=== PATIENT | female | born 1995 | race Caucasian/White ===

== ENCOUNTER 2024-02-13 23:33 | Inpatient (IN) | payer OTHER, SELFPAY ==
--- NOTE | 2024-02-13 23:55 | LDADM ---
This patient, Ronit Rahman, was admitted to Labor/Delivery/Recovery 104 on 02/13/24 at 23:33. Plans for labor, pain management and were discussed with patient. Patient/family oriented to hospital policies and general routines including ID bracelet, bed and alarms, visiting hours, pain management, procedures, bathroom and other care routines, personal items, smoking policy, room service/diet and guest tray routines, infant security routines, and visiting hours. Patient/Family are encouraged to report perceived risks to care and to ask questions if they do not understand what they are told or what they should do. See OBIX for further documentation.
[2024-02-13 23:57] VITALS: BMI 28.2
[2024-02-14] VITALS (154 sets, daily range): BP systolic 50–139; BP diastolic 39–115; PULSE 49–191; RESP 16–18; TEMP 36.1–37.1; O2SAT 93–100
[2024-02-14 00:21] LABS: Basophils Percent Auto 0.3 % (0.2-1.2); Eosinophils Absolute Auto 0.2 K/mm3 (0-0.3); Eosinophils Percent Auto 1.9 % (0-4.4); Hematocrit 31.6 % (37.0-47.0); Hemoglobin 10.3 g/dL (12.0-15.0); Lymphocytes Absolute Auto 2.06 K/mm3 (0.9-3.2); Mean Corpuscular HGB Conc 32.6 g/dl (32-36); Mean Corpuscular Hemoglobin 30.5 pg (26-34); Mean Corpuscular Volume 93.5 fl (80-100); Mean Platelet Volume 10.5 fl (7.4-10.4); Monocytes Absolute Auto 0.8 K/mm3 (0.1-0.6); Monocytes Percent Auto 7.6 % (2.6-8.5); Neutrophils Absolute Auto 6.7 K/mm3 (1.3-6.7); Neutrophils Percent Auto 68.2 % (45.5-73.1); Platelet Count Result 215 k/mm3 (150-375); Red Blood Count 3.38 M/mm3 (4.2-5.4); Red Cell Distribution Width 14.6 % (11.5-14.5); White Blood Count 9.8 K/mm3 (4.5-10.0)
[2024-02-14] MEDS: ACETAMINOPHEN 500 MG TABLET 1000 MG PO (02:26)
[2024-02-14] MEDS: FAMOTIDINE 20 MG/2 ML VIAL IV PUSH (02:27)
[2024-02-14] MEDS: miSOPROStol 25 MCG TABLET 50 MCG BY MOUTH ×2 (03:17→04:16)
[2024-02-14] MEDS: ONDANSETRON INJ 4 MG/2 ML VIAL IV PUSH (04:14)
[2024-02-14] MEDS: fentaNYL CITRATE INJ (*CRX) 100 MCG/2 ML VIAL 50 MCG IV PUSH (06:46)
[2024-02-14] MEDS: LACTATED RINGERS 1,000 ML 125 ML IV CONT ×2 (07:20→08:21)
--- NOTE | 2024-02-14 07:51 | WPDOBADMIT ---
Obstetrics - Admit Note Admission Note: record reviewed. No pertinent additions to the history and/or any subsequent changes in the physical findings that are not consistent with the expected course of the were found. Additions to the history and/or subsequent changes in the physical findings follow. IOL, cholestasis, SVE 1.5/60/-2 AROM, moderate amount of clear, odorless fluid, anticipate vaginal delivery
[2024-02-14] MEDS: OXYTOCIN 30 UNITS/NS 500 ML 30 UNITS/500 ML BAG IV CONT (09:34)
--- NOTE | 2024-02-14 12:02 | PM.OBPRVD ---
OB - Vaginal Delivery Note Procedure Delivery date: 02/14/24 Events: Other (XXY-fetus, cholestasis) Induction method: AROM, Per Misoprostol Protocol and Per Pitocin Protocol Delivery monitor: External FHT and Internal Uterine Route of delivery: Episiotomy description: None Laceration Description: Other (right labial) Delivery repair: vicryl Specimen: No Quantitative Blood Loss (ml): 60 Anesthesia type: Epidural Disposition: Floor Complications: No immediate complications [place] Baby Date of : 02/14/24 Time of : 11:50 Weeks of gestation at delivery: 37 Infant gender: Male presentation: vertex position: Left Occiput Anterior Placenta delivery description: Spontaneous Cord Vessel Description: 3 Vessels, Nuchal Cord (x2), Reduced and Delayed Cord Clamping score one minute: 8 score five minutes: 9 Narrative: mother and baby skin to skin in stable condition
[2024-02-14] MEDS: OXYTOCIN 30 UNITS/NS 500 ML 30 UNITS/500 ML BAG 125 UNITS IV CONT (12:35)
[2024-02-14] MEDS: BENZOCAINE 20% AER SPR (*SP) 56 GM CAN 1 SPRAY TOPICAL ×2 (14:08→16:10)
[2024-02-14] MEDS: ACETAMINOPHEN 325 MG TABLET 650 MG PO (14:08)
--- NOTE | 2024-02-14 16:02 | OBPPTRN ---
1445-Patient transferred to post room #291 via wheelchair. Support person present. Oriented to unit, room, information board, rooming in, admission packet and security measures. Patient verbalizes understanding.
[2024-02-14] MEDS: IBUPROFEN 600 MG TABLET PO (16:09)
[2024-02-14] MEDS: WITCH HAZEL 40 PADS 1 PAD TOPICAL (16:10)
[2024-02-15 03:53] VITALS: BP 107/65; PULSE 58; RESP 20; TEMP 36.6; O2SAT 97
[2024-02-15] MEDS: ACETAMINOPHEN 325 MG TABLET 650 MG PO (03:54)
[2024-02-15 04:33] LABS: Hemoglobin 10.5 g/dL (12.0-15.0)
--- NOTE | 2024-02-15 08:31 | PM.OBPNVD ---
OB - PN: Subj Subjective Date/time seen: 02/15/24 08:31 Patient comments: no complaints, pain well controlled, incisional pain, tolerating diet and flatus present OB - PN: Obj Data Labs 02/15/24 03:44 Labs: Laboratory Results - last 24 hr 02/15/24 03:44 Hgb 10.5 L Hct 33.0 L OB - PN A/P Plan day: 1 Plan: routine care Comments: No problems, routine care, to d/c, baby transferred Time Spent With Patient Time: Total time spent is greater than 50% in coordination of care (as documented) at patient's floor/unit and/or counseling patient: Exam Const: General: comfortable, no acute distress and alert Resp: Effort & Inspection: normal respiratory effort Auscultation: no crackles, no rales and no rhonchi Cardio: Rate: regular rate Heart sounds: no click, no murmurs and no rubs GI: Inspection: non-distended GI Palp: No Tenderness to palpation present (GI) Auscultation: normal bowel sounds Other: Incision - CDI Extrem: General: normal to inspection, no pedal edema and no calf tenderness
--- NOTE | 2024-02-15 08:33 | PM.OBDSVD ---
DS: Admitting Diagnosis Discharge Date 02/15/24 Admitting Diagnosis term DS: Discharge Diagnosis Discharge Diagnosis (1) Post term , delivered: Code(s): O48.0 - Post-term Status: Acute OB - DS: Summary OB Procedures : None OB Procedures Intrapartum: Spontaneous Vag Delivery OB Procedures: : None Peripartum Data Laceration Description: Other (right labial) Episiotomy description: None Time Spent with Patient Time attestation: Total time spent providing and/or coordinating discharge services: DS: Data Data Completed and Pending Pending studies at discharge: Pending at discharge 02/14/24 12:09 Surgical [PTH] Routine Labs on day of discharge: Labs from last 24 hours 02/15/24 03:44 Hgb 10.5 L Hct 33.0 L Discharge Plan Discharge Discharging Clinician: Charly Madrigal Patient Disposition: Home, Self-Care Activity: pelvic rest Diet: regular Patient Instructions: Antibiotic Form Stand Alone Forms: General Discharge Information Follow-up/Referrals: Charly Madrigal MD [Physician] - Discharge Medications: Continued famotidine [Pepcid] 20 mg Tablet 20 mg PO DAILY ferrous sulfate [Iron (ferrous sulfate)] 325 mg (65 mg iron) Tablet 65 mg PO DAILY Classic 28 mg iron- 800 mcg Tablet 1 tablet PO DAILY ondansetron HCl 8 mg tablet 8 mg PO EVERY OTHER DAY Date of admission: 02/13/24 23:33 Primary Care Provider: UNKNOWN,DOCTOR Admitting Provider: Charly Madrigal Attending physician on admission: Charly Madrigal Condition: Stable
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
[2024-02-15 08:55] VITALS: BP 113/79; PULSE 67; RESP 16; TEMP 36.9; O2SAT 100
[2024-02-15] MEDS: IBUPROFEN 600 MG TABLET PO (08:58)
[2024-02-15] MEDS: DOCUSATE SODIUM 100 MG CAPSULE PO (08:59)
[2024-02-17 16:53] LABS: Rapid Plasma Reagin Non-Reactive (NonReactive)
== END 2024-02-15 09:50 | disposition home or self-care (01) | DRG 560 ==
LOC: ANHLDR 23:38 → ANHOB2 02-14 15:18
PROVIDERS: Admitting Provider Obstetrics & Gynecology; Referring Provider Advanced Practice Midwife; Visit Provider Obstetrics & Gynecology
DX: O69.81X0 Labor and delivery complicated by cord around neck, without compression, not applicable or unspecified (principal); Z3A.37 37 weeks gestation of pregnancy; Z37.0 Single live birth; O70.0 First degree perineal laceration during delivery
CPT/HCPCS: 36415; 85014; 85018; 85025; 86592; 86850; 86900; 86901; 88307; A9270; J2405; J2590; J2795; J3010; J7120